=== PATIENT | male | born 1980 | race African-American/Black ===

== ENCOUNTER 2025-06-15 13:07 | Emergency (ER) | payer MEDICARE, MEDICAID ==
[~2025-06-15] VITALS: Ht 175.3 cm; Wt 73.0 kg
[2025-06-15 13:11] VITALS: O2SAT 98
[2025-06-15] MEDS: SODIUM CHLORIDE 0.9% 1,000 ML IV ONE (13:47)
[2025-06-15 14:06] LABS: BASOPHILS % 0.8 % (0.0-2.0); EOSINOPHILS % 1.6 % (0.0-5.0); HEMATOCRIT. 27.6 % (42.0-52.0); HEMOGLOBIN. 9.6 g/dL (14.0-18.0); LYMPHOCYTES % 15.8 % (20.0-50.0); MEAN PLATELET VOLUME 7.7 fl (7.4-10.4); MONOCYTES % 11.3 % (2.0-8.0); NEUTROPHILS % 70.5 % (40.0-76.0); PLATELET 210 x1000/uL (130-400); RED BLOOD CELL COUNT 3.00 mill/uL (4.7-6.1); RED CELL DISTRIBUTION WIDTH 16.1 % (11.6-14.6)
[2025-06-15 14:21] LABS: CREATININE 4.4 mg/dL (0.6-1.3)
[2025-06-15 14:22] LABS: UREA NITROGEN BLOOD 22 mg/dL (9-23)
[2025-06-15 14:23] LABS: ASPARTATE AMINOTRANSFERASE 17 IU/L (<34); TROPONIN I HIGH SENSITIVITY 26 ng/L (3.0-53)
[2025-06-15 14:24] LABS: BILIRUBIN DIRECT < 0.1 mg/dL (<=3.0); BILIRUBIN TOTAL 0.3 mg/dL (0.1-1.0); PROTEIN TOTAL 9.0 g/dL (6.0-8.3)
[2025-06-15 16:55] LABS: TROPONIN I HIGH SENSITIVITY 24 ng/L (3.0-53)
[2025-06-15 18:20] VITALS: BP 157/82; PULSE 74; RESP 16; TEMP 36.9; O2SAT 100
== END 2025-06-15 18:21 | disposition home or self-care (01) ==
LOC: ER 13:07 → CANBEDREQ 17:48 → ER 18:21
DX: I95.3 Hypotension of hemodialysis (principal); R47.01 Aphasia; I13.11 Hypertensive heart and chronic kidney disease without heart failure, with stage 5 chronic kidney disease, or end stage renal disease; I69.30 Unspecified sequelae of cerebral infarction; N18.6 End stage renal disease; Z99.2 Dependence on renal dialysis
CPT/HCPCS: 99284; 71045; 80076; 80048; 83690; 85025; 84484; 36415; J7030